=== PATIENT | male | born 1995 | race Caucasian/White ===

== ENCOUNTER 2021-09-02 13:52 | Emergency (ER) | payer BC ==
[~2021-09-02] VITALS: Ht 157.5 cm; Wt 56.7 kg
[2021-09-02 14:09] VITALS: BP 132/64
--- NOTE | 2021-09-02 14:12 | NUR ---
PT AMB TO BED 9.
--- NOTE | 2021-09-02 14:15 | NUR ---
25 Y/O M AMBULATED TO BED 9 C/O N/VX2/DX1, WEAKNESS SINCE 10AM. NKDA PMH: DENIES
--- NOTE | 2021-09-02 14:50 | NUR ---
LAB AT BEDSIDE FOR BLOOD DRAW
[2021-09-02 14:56] LABS: BASOPHILS % (AUTO) 0.5 % (0.0-2.0); EOSINOPHILS % (AUTO) 0.3 % (0.0-4.0); HEMATOCRIT 44.9 % (36-52); HEMOGLOBIN 15.5 g/dL (12.0-18.0); LYMPHOCYTES # (AUTO) 1.4 K/uL (2.0-11.5); LYMPHOCYTES % (AUTO) 15.2 % (20.5-51.1); MEAN CORPUSCULAR HEMOGLOBIN 32 pg (27-31); MEAN CORPUSCULAR HGB CONC 35 g/dL (33-37); MEAN CORPUSCULAR VOLUME 92.5 fL (80-94); MONOCYTES # (AUTO) 0.4 K/uL (0.8-1.0); MONOCYTES % (AUTO) 4.5 % (1.7-9.3); NEUTROPHILS # (AUTO) 7.5 K/uL (1.8-7.7); NEUTROPHILS % (AUTO) 79.5 % (42.2-75.2); PLATELET COUNT (AUTO) 205 K/uL (140-450); RED BLOOD CELL COUNT(AUTO) 4.85 MIL/uL (4.20-6.10); WHITE BLOOD COUNT (AUTO) 9.4 K/uL (4.8-10.8)
[2021-09-02 15:26] LABS: ALBUMIN 4.2 g/dL (3.4-5.0); ANION GAP 12.5 (8-16); CARBON DIOXIDE 27.5 mmol/L (21-32); CREATININE 0.9 mg/dL (0.6-1.3); TOTAL BILIRUBIN 0.5 mg/dL (0.0-1.0)
[2021-09-02] MEDS ORDERED: LOPE1TAB14 PO (15:35)
[2021-09-02] MEDS ORDERED: ONDA-188 SL (15:35)
[2021-09-02 15:45] VITALS: BP 123/55
--- NOTE | 2021-09-02 15:45 | NUR ---
Patient discharged with v/s stable. Written and verbal after care instructions given and explained. Patient alert, oriented and verbalized understanding of instructions. Ambulatory with steady gait. All questions addressed prior to discharge. ID band removed. Patient advised to follow up with PMD. Rx of IMODIUM,ZOFRAN given. Patient educated on indication of medication including possible reaction and side effects. Opportunity to ask questions provided and answered.
== END 2021-09-02 15:45 | disposition home or self-care (01) ==
LOC: MED 13:52
DX: A08.4 Viral intestinal infection, unspecified (principal); Z11.3 Encounter for screening for infections with a predominantly sexual mode of transmission
CPT/HCPCS: 36415; 80053; 85025; 86592; 87491; 99283